=== PATIENT | female | born 1940 | race Caucasian/White ===

== ENCOUNTER 2016-06-15 09:35 | Emergency (ER) | payer OTHER, MEDICARE ==
[2016-06-15 10:03] LABS: COLOR YELLOW; LEUKOCYTE ESTERASE,URINE 3+ (NEGATIVE); NITRITE,URINE NEGATIVE (NEGATIVE)
[2016-06-15 10:12] LABS: RBC,URINE 50-182 /hpf (0-3); WBC,URINE 50-182 /hpf (0-3)
--- NOTE | 2016-06-15 10:24 | EDPHY ---
HPI/HX/ROS/PE/MDM Narrative: CHIEF COMPLAINT: Dysuria HISTORY OF PRESENT ILLNESS: This patient is a 75 year old woman presenting with acute dysuria, urinary frequency, and urinary urgency, onset 4-5 days ago, acutely worsening early this morning. Symptoms are moderate in severity. She denies hematuria, flank pain, fever, nausea, or vomiting. Symptoms are similar to previous urinary tract infections, last two years ago. REVIEW OF SYSTEMS: Aside from elements discussed in the HPI, a comprehensive 10-point review of systems was reviewed and is negative. PAST MEDICAL HISTORY: Denies. Negative testing for Celiac. SOCIAL HISTORY: Non-smoker. PCP is Dr. Alicia Pearson. She is transitioning to a gluten free diet. VITAL SIGNS: Reviewed by me GENERAL: Well-developed, well-nourished, resting comfortably in no respiratory distress. HEENT: Atraumatic. Eyes: No icterus, no injection. Mouth: moist mucous membranes. No erythema or lesions. Neck: supple with no adenopathy. LUNGS: Clear to auscultation bilaterally, no wheezes, rhonchi or rales. CARDIAC: Regular rate and rhythm, no rubs, murmurs or gallops. ABDOMEN: Soft, nontender, nondistended, bowel sounds normal. BACK: No CVA tenderness. EXTREMITIES: No trauma. No edema. Range of motion is normal throughout. NEURO: Alert and oriented, grossly nonfocal. SKIN: Warm and dry, no rash. PSYCHIATRIC: Normal mentation, no agitation. Portions of this note were transcribed by a medical center representative. I personally performed a history, physical exam, medical decision making, and confirmed accuracy of information the transcribed note. ED Course: Urinalysis shows WBCs, RBCs, and leukocyte esterase; consistent with urinary tract infection. The patient has no systemic symptoms. She is tolerating POs. Will treat with oral antibiotics and Pyridium. Patient believes she did not tolerate Keflex in the past. Previous urine cultures reviewed, sensitive to Cipro. Will prescribe Cipro for antibiotic. Note: a local pharmacy called and asked us to change prescription to Keflex. Their records indicate that the patient was unable to tolerate CIPRO previously , but had done well wiht KEFLEX This change was made. MDM: diff dx considered included vaginitis, uti, pyelonephritis, kidney stone, abdominal pain, bladder prolapse. - Data Points Medications Given: Discontinued Medications Ciprofloxacin (Cipro) 500 mg PO EDNOW ONE PRN Reason: Protocol Stop: 06/15/16 10:29 Last Admin: 06/15/16 10:43 Dose: 500 mg Phenazopyridine HCl (Pyridium) 200 mg PO EDNOW ONE Stop: 06/15/16 10:29 Last Admin: 06/15/16 10:43 Dose: 200 mg Microbiology Results: MICROBIOLOGY 06/15/16 10:08 Urine,Clean Catch Urine Culture - Final Proteus Mirabilis Gram Neg Rods 2 Or More Types General Time Seen by Provider: 06/15/16 10:09 Initial Vital Signs: Initial Vital Signs Temperature (C) 36.7 C 06/15/16 09:35 Heart Rate 78 06/15/16 09:35 Respiratory Rate 16 06/15/16 09:35 Blood Pressure 117/72 06/15/16 09:35 O2 Sat (%) 97 06/15/16 09:35 O2 Delivery Mode Room Air Allergies/Adverse Reactions: oxycodone HCl [From OxyContin] Allergy (Unknown, Verified 09/05/14 20:14) ITCH morphine Allergy (Verified 09/05/14 20:14) Itching shellfish derived Allergy (Verified 09/05/14 20:14) zolpidem tartrate [From Ambien] Allergy (Verified 09/05/14 20:14) Other-Enter Comments Home Medications: Medication Instructions Recorded Levothyroxine Sodium [Tirosint] 100 mcg PO DAILY 03/18/14 Ciprofloxacin [Cipro] 500 mg PO BID #14 tab 06/15/16 Departure - Departure Disposition: Home, Routine, Self-Care Clinical Impression: Urinary tract infection Qualifiers: Urinary tract infection type: acute cystitis Hematuria presence: with hematuria Qualified Code(s): N30.01 - Acute cystitis with hematuria Condition: Good Instructions: Urinary Tract Infection in Women (ED) Additional Instructions: Take the Pyridium for relief of pain with urination. Take the Cipro, as prescribed, for antibiotic. Return to the Emergency Department for fever, worsening pain, flank pain or failure to improve within 72 hours. It is possible that the bacteria causing your infection is resistant to the antibiotic we've placed you on. We have sent a urine for culture, if this comes back with a resistant bacteria, we will call you at the number you provided to us. Referrals: Heidi Pearson PA [Primary Care Provider] - As per Instructions Prescriptions: Ciprofloxacin [Cipro] 500 mg PO BID #14 tab Report Scribed for: Sherlyn Mejia Report Scribed by: Heidi Elena Date of Report: 06/15/16 Time of Report: 10:23
[2016-06-15] MEDS ORDERED: PHENAZOPYRIDINE HCL 200 MG TAB PO ONE (10:28)
[2016-06-15] MEDS ORDERED: CIPROFLOXACIN 500 MG TAB PO ONE (10:28)
[2016-06-15 10:45] VITALS: BP 116/72; PULSE 75; RESP 17; TEMP 98.8; O2SAT 98
== END 2016-06-15 10:44 | disposition home or self-care (01) ==
DX: N30.01 Acute cystitis with hematuria (principal); B96.89 Other specified bacterial agents as the cause of diseases classified elsewhere

== ENCOUNTER → 2017-02-25 | Outpatient (CLI) | payer OTHER, MEDICARE | LOC: FIMAGING 09:26 | PROVIDERS: ATTEND Physician Assistant | DX: Z12.31 Encounter for screening mammogram for malignant neoplasm of breast (principal) ==

== ENCOUNTER → 2017-02-28 | Outpatient (CLI) | payer OTHER, MEDICARE | LOC: FIMAGING 09:42 | PROVIDERS: ATTEND Physician Assistant | DX: R92.8 Other abnormal and inconclusive findings on diagnostic imaging of breast (principal) ==

== ENCOUNTER 2018-01-26 14:15 | Inpatient (IN) | payer OTHER, MEDICARE ==
--- NOTE | 2018-03-09 06:22 | PDIAF ---
- Diagnosis Diagnosis: right knee djd Code Status: Full Code - Medication Management Discharge Medications: electronically signed and located in the Home Medication List. - Orders Services needed: Home Care, Physical Therapy Home Care Face to Face: I certify that this patient was under my care and that I had the required [id number] encounter meeting the encounter requirements on the discharge day. My findings support the fact that the patient is homebound as defined in Home Care Face to Face Continued: CMS Chapter 7 Medicare Benefits Manual 30.1.1 , The condition of the patient is such that there exists a normal inability to leave home and consequently, leaving home would require a considerable and taxing effort. Isolation Type: None Diet Recommendation: no restrictions on diet Diet Texture: Regular Texture Diet Additional Instructions: TOTAL JOINT ARTHROPLASTY DISCHARGE INSTRUCTIONS 1. Your surgeon follows the [facility] protocol for reducing your risk of DVT (blood clots) following surgery. Medication will be ordered to prevent blood clots. A sudden increase in calf pain and/or swelling could indicate a blood clot in your leg. If this occurs, please call your surgeon or his/her volunteer services assistant. An ultrasound of the leg may be necessary to diagnose a blood clot. If you have conditions that make you a higher risk for blood clots, your surgeon may use more aggressive ways to prevent them. Notify your surgeon if you think you are a high risk for blood clots. 2. Wear your white surgical stockings (RONNY hose) for 2 weeks. This decreases your swelling and may help prevent blood clots. It is ok to remove RONNY hose at night time to give your legs a break. 3. Swelling and bruising in the surgical leg is common. If you feel that it is excessive, please notify your surgeon. 4. Elevate your surgical leg with the ankle above the hip several times every day. Please keep the leg straight when you elevate by putting pillows under your foot. Do not put pillows under your knee. This will make being able to fully straighten more difficult. This is uncomfortable, but try to do it as much as possible. 5. For total knee replacements use compressive wrap on your knee for 3-5 days after surgery, then you can discontinue it. 6. Use a walker or crutches for 1-2 weeks. Progress your weight-bearing as tolerated. You may start to use a cane when you feel stable and safe. 7. You will receive physical therapy instructions in the hospital. Continue those exercises at home. There are additional exercises in the total joint booklet you were given before surgery. Outpatient physical therapy will begin 7- 10 days after surgery. Please schedule this in advance. 8. Use ice on your knee at least 3-5 times every day for 30 minutes. This helps reduce pain and swelling. Also use it at night before falling asleep. 9. Leave your surgical dressing in place for 2 weeks. Your dressing is water resistant, but not waterproof. Cover it with Saran Wrap or Nacrc-m-Ryfd before showering. You may shower as soon as you feel safe entering a shower. If you notice bleeding from your incision 2 or 3 days after surgery, please notify your surgeon. 10. Due to narcotics, decreased activity and altered diet, most patients experience constipation after surgery. Use nwkm-oly-oqkjdis stool softeners while you are on narcotics. 11. You may drive a car when you are comfortable bearing weight, have good muscular control of your leg and are off narcotics. This usually occurs 2-4 weeks after surgery, depending on which leg was operated on. 12. If there are questions not addressed here, please refer the [facility] book given for more information. If you still have questions, please contact your surgeon s office. 13. If you have a life-threatening emergency, please call 911 and go to the emergency room immediately. For non-life threatening emergencies, please call your physicians office for advice before going to the emergency room. - Follow Up Care Current Providers and Referrals: Heidi Pearson PA [Primary Care Provider] - Hans Quiñones MD [Medical Doctor] -
--- NOTE | 2018-03-09 06:22 | PDHPUP ---
History & Physical Update H&P update statement: This history and physical update is based on an assessment of the patient which was completed after admission or registration (within 24 hours), but prior to the surgery/procedure. H&P update: no change in patient's condition since H&P completed
[2018-03-09] MEDS ORDERED: ACETAMINOPHEN 325 MG TAB PO ONE (09:21)
[2018-03-09] MEDS ORDERED: LR 1,000 ML IV ONE (09:21)
[2018-03-09] MEDS ORDERED: ceFAZolin 2 GM/DEXTROSE 100 ML IV ONE (09:21)
[2018-03-09] MEDS ORDERED: FAMOTIDINE 20 MG TAB PO ONE (09:21)
[2018-03-09] MEDS ORDERED: THROMBIN (BOVINE) 5,000 UNIT VIAL TP ONE (10:03)
[2018-03-09] MEDS ORDERED: CALCIUM CHLORIDE 1 GM/10 ML INJ ONE (10:03)
[2018-03-09] MEDS ORDERED: ceFAZolin 1 GM/5 ML SYR ONE (10:03)
[2018-03-09] MEDS ORDERED: ceFAZolin 1 GM VIAL ONE (10:04)
[2018-03-09] MEDS ORDERED: MIDAZOLAM 2 MG/2 ML VIAL IVP ONE (10:30)
--- NOTE | 2018-03-09 10:31 | PDANEPAE ---
ANE Past Medical History - Cardiovascular History Hx Hypertension: No Hx Arrhythmias: No Hx Coronary Artery / Peripheral Vascular Disease: No Hx CHF / Valvular Disease: No Hx Palpitations: No - Pulmonary History Hx COPD: No Hx Asthma/Reactive Airway Disease: No Hx Recent Upper Respiratory Infection: No Hx Oxygen in Use at Home: No Hx Sleep Apnea: No Sleep Apnea Screening Result - Last Documented: Negative - Neurologic History Hx Cerebrovascular Accident: No Hx Seizures: No Hx Dementia: No - Endocrine History Hx Diabetes: No Endocrine History Comment: thyroidectomy- hypothyroidism - Renal History Hx Renal Disorders: No - Liver History Hx Hepatic Disorders: No Hepatic History Comment: PARTIAL PANCREATIC INSUFFICIENCY - Neurological & Psychiatric Hx Hx Neurological and Psychiatric Disorders: Yes Neurological / Psychiatric History Comment: occassional anxiety and depression she relates it to her hypothyroid and paxil when needed on currently - Cancer History Hx Cancer: No - Congenital Disorder History Hx Congenital Disorders: No - GI History Hx Gastrointestinal Disorders: Yes Gastrointestinal History Comment: occassional reflux a few times a week just uses otc meds - Other Health History Other Health History: none - Chronic Pain History Chronic Pain: Yes (right shoulder pain) - Surgical History Prior Surgeries: thyroidectomy- chemically ablated not surgical. appy. left shoulder replacement . left tka 08/2011. fractured right wrist surgery 09/2010 ANE Review of Systems Review of Systems: - Exercise capacity METS (RN): 6 METS ANE Patient History - Allergies Allergies/Adverse Reactions: oxycodone HCl [From OxyContin] Allergy (Unknown, Verified 09/05/14 20:14) ITCH morphine Allergy (Verified 09/05/14 20:14) Itching shellfish derived Allergy (Verified 02/13/18 10:48) SEVERE RASH zolpidem tartrate [From Ambien] Allergy (Verified 02/13/18 10:48) NIGHTMARES - Home Medications Home Medications: Calcium Carbonate [Oyster Shell Calcium 500 mg (*)] 500 mg PO DAILY 02/11/18 [ Last Taken 1 Week Ago ~03/02/18] Cholecalciferol Vit D3 [Vitamin D3 (*)] 1,000 units PO DAILY 02/11/18 [Last Taken 1 Week Ago ~03/02/18] Estradiol [Estrace Vaginal (*)] 1 mg VG SUTH 02/11/18 [Last Taken 1 Day Ago ~] Herbals/Supplements -Info Only 1 ea PO DAILY 02/11/18 [Last Taken 1 Week Ago ~] Ibuprofen [Motrin (*)] 200 mg PO HS 02/11/18 [Last Taken 1 Week Ago ~03/02/18] Lipase 24,000/Amylase/Protease [Creon 24 (*)] 1 - 3 cap PO AD 02/11/18 [Last Taken 1 Day Ago ~03/08/18] Lipase 24,000/Amylase/Protease [Creon 24 (*)] 1 - 3 cap PO TIDMEAL 02/11/18 [ Last Taken 1 Day Ago ~03/08/18] Multivitamins [Multivitamin (*)] 1 each PO DAILY 02/11/18 [Last Taken 1 Week Ago ~03/02/18] Omeprazole 40 mg PO DAILY 02/11/18 [Last Taken 03/09/18 06:30] Vitamin B Complex [Vitamin B Complex (OTC)] 1 each PO DAILY 02/11/18 [Last Taken 1 Week Ago ~03/02/18] Gabapentin PRN 02/13/18 [Last Taken 1 Day Ago ~03/08/18] Xanax 0.25 MG (*) PRN 02/13/18 [Last Taken 1 Day Ago ~03/08/18] Levothyroxine Sodium [Tirosint] 112 mcg PO DAILY 03/09/18 [Last Taken 03/09/18 06:00] - NPO status NPO Since - Liquids (Date): 03/09/18 NPO Since - Liquids (Time): 07:30 NPO Since - Solids (Date): 03/08/18 NPO Since - Solids (Time): 22:00 - Smoking Hx Smoking Status: Former smoker - Family Anes Hx Family Hx Anesthesia Complications: none ANE Labs/Vital Signs - Vital Signs Blood Pressure: 91/57 Heart Rate: 68 Respiratory Rate: 16 O2 Sat (%): 98 Height: 149.86 cm Weight: 45.359 kg ANE Physical Exam - Airway Neck exam: FROM Mallampati Score: Class 1 Mouth exam: normal dental/mouth exam - Pulmonary Pulmonary: no respiratory distress - Cardiovascular Cardiovascular: regular rate and rhythym - ASA Status ASA Status: II ANE Anesthesia Plan Anesthesia Plan: spinal Regional Anesthesia: adductor canal FNB
[2018-03-09] MEDS ORDERED: PROPOFOL 200 MG/20 ML VIAL ONE (11:05)
[2018-03-09] MEDS ORDERED: ROPIVACAINE 0.2% 80 MG, EPINEPHrine 0.2 MG, KETOROLAC TROMETHAMINE 30 MG in SYRINGE 0 ML IU ONE (11:11)
[2018-03-09] MEDS ORDERED: TRANEXAMIC ACID 1,000 MG in NS 100 ML IV ONE (11:11)
[2018-03-09] MEDS ORDERED: POLYETHYLENE GLYCOL 3350 17 GM PKT PO PRN (11:59)
[2018-03-09] MEDS ORDERED: MAGNESIUM HYDROXIDE 30 ML UDCUP PO PRN (11:59)
[2018-03-09] MEDS ORDERED: TEMAZEPAM 15 MG CAP PO PRN (11:59)
[2018-03-09] MEDS ORDERED: PROMETHAZINE HCL 25 MG SUPPR PR PRN (11:59)
[2018-03-09] MEDS ORDERED: DIPHENOXYLATE/ATROPINE LOMOTIL 1 TAB PO PRN (11:59)
[2018-03-09] MEDS ORDERED: diphenhydrAMINE 25 MG CAP PO PRN (11:59)
[2018-03-09] MEDS ORDERED: ONDANSETRON 4 MG/2 ML VIAL IVP PRN ×2 (11:59→12:24)
[2018-03-09] MEDS ORDERED: BISACODYL 10 MG SUPP PR PRN (11:59)
[2018-03-09] MEDS ORDERED: METOCLOPRAMIDE 10 MG/2 ML VIAL IVP PRN (11:59)
[2018-03-09] MEDS ORDERED: PROMETHAZINE HCL 25 MG/ML INJ IVP PRN (11:59)
[2018-03-09] MEDS ORDERED: ONDANSETRON DISINTEGRATING 4 MG TAB PO PRN (11:59)
[2018-03-09] MEDS ORDERED: LACTULOSE 20 GM/30 ML UDCUP PO PRN (11:59)
[2018-03-09] MEDS ORDERED: traMADol 50 MG TAB PO PRN (11:59)
[2018-03-09] MEDS ORDERED: LR 1,000 ML IV SCH (12:00)
[2018-03-09] MEDS ORDERED: HYDROCODONE/APAP 5/325 TAB PO PRN (12:00)
--- NOTE | 2018-03-09 12:03 | POSTOPPROG ---
Post Op Note Date of Operation: 03/09/18 Surgeon: Hans Quiñones Nutritional Yeast Supervisor: albertina Anesthesiologist: charlotte Anesthesia: Spinal Pre-op Diagnosis: right knee djd Post-op Diagnosis: same Indication: same Procedure: right tka Inf/Abcess present in the surg proc area at time of surgery?: No Depth: Deep Incisional (Fascial) EBL: 50-100
[2018-03-09] MEDS ORDERED: NALOXONE HCL 0.4 MG/ML INJ IVP PRN (12:24)
[2018-03-09] MEDS ORDERED: LR 500 ML IV PRN (12:24)
--- NOTE | 2018-03-09 12:26 | POSTANESTH ---
Post Anesthetic Evaluation Cardiovascular Status: Normal, Stable Respiratory Status: Normal, Stable Level of Consciousness/Mental Status: Can Participate in Eval Pain Control: Adequate, Prn Tx Ordered Nausea/Vomiting Control: Adequate, Prn Tx Ordered Complications Possibly Related to Anesthesia: None Noted
[2018-03-09] MEDS: TRANEXAMIC ACID 650 MG TAB PO SCH ×2 (13:53→22:03)
[2018-03-09] MEDS: ACETAMINOPHEN 325 MG TAB PO SCH ×2 (13:54→18:13)
[2018-03-09] MEDS: ceFAZolin 2 GM/DEXTROSE 100 ML IV SCH (18:15)
[2018-03-09] MEDS ORDERED: IBUPROFEN 200 MG TAB PO SCH (21:00)
[2018-03-09] MEDS: CYCLOBENZAPRINE 10 MG TAB PO PRN (22:02)
[2018-03-09] MEDS: SENNOSIDES/DOCUSATE SODIUM TAB PO SCH ×2 (22:03→23:13)
[2018-03-09] MEDS: FAMOTIDINE 20 MG TAB PO SCH (22:03)
[2018-03-10] MEDS: ACETAMINOPHEN 325 MG TAB PO SCH ×3 (01:34→10:05)
[2018-03-10] MEDS: ASPIRIN 325 MG TAB PO SCH ×2 (01:34→10:05)
[2018-03-10] MEDS: ceFAZolin 2 GM/DEXTROSE 100 ML IV SCH (02:16)
[2018-03-10] MEDS: TRANEXAMIC ACID 650 MG TAB PO SCH (06:03)
--- NOTE | 2018-03-10 07:04 | SOAPPROG ---
SOAP Progress Note Assessment/Plan: Assessment: s/p right tka Plan:stable d/c home pain control dvt precautions f/u at two weeks 03/10/18 07:03 Subjective: mild pain no cp or sob bertha po Objective: Vital Signs Temp Pulse Resp BP Pulse Ox 36.6 C 70 16 108/63 94 03/10/18 04:00 03/10/18 04:00 03/10/18 04:00 03/10/18 04:00 03/10/18 04:00 Laboratory Results 03/10/18 04:38 03/09/18 03/10/18 03/11/18 05:59 05:59 05:59 Intake Total 3365 Output Total 2900 700 Balance 465 -700 dressing intact intact pf,df,ehl toes warm and pink neg homans mari xrays anatomic alignement no fx or lucency ICD10 Worksheet Patient Problems: Problems Problem Status Onset H/O total shoulder replacement Acute Headache Acute Urinary tract infection Acute
--- NOTE | 2018-03-10 07:04 | PDIAF ---
- Diagnosis Diagnosis: right knee djd Code Status: Full Code - Medication Management Discharge Medications: electronically signed and located in the Home Medication List. - Orders Services needed: Home Care, Physical Therapy Home Care Face to Face: I certify that this patient was under my care and that I had the required [id number]-[id number] encounter meeting the encounter requirements on the discharge day. My findings support the fact that the patient is homebound as defined in Home Care Face to Face Continued: CMS Chapter 7 Medicare Benefits Manual 30.1.1 , The condition of the patient is such that there exists a normal inability to leave home and consequently, leaving home would require a considerable and taxing effort. Isolation Type: None Diet Recommendation: no restrictions on diet Diet Texture: Regular Texture Diet Additional Instructions: TOTAL JOINT ARTHROPLASTY DISCHARGE INSTRUCTIONS 1. Your surgeon follows the [facility] protocol for reducing your risk of DVT (blood clots) following surgery. Medication will be ordered to prevent blood clots. A sudden increase in calf pain and/or swelling could indicate a blood clot in your leg. If this occurs, please call your surgeon or his/her sales support assistant. An ultrasound of the leg may be necessary to diagnose a blood clot. If you have conditions that make you a higher risk for blood clots, your surgeon may use more aggressive ways to prevent them. Notify your surgeon if you think you are a high risk for blood clots. 2. Wear your white surgical stockings (RONNY hose) for 2 weeks. This decreases your swelling and may help prevent blood clots. It is ok to remove RONNY hose at night time to give your legs a break. 3. Swelling and bruising in the surgical leg is common. If you feel that it is excessive, please notify your surgeon. 4. Elevate your surgical leg with the ankle above the hip several times every day. Please keep the leg straight when you elevate by putting pillows under your foot. Do not put pillows under your knee. This will make being able to fully straighten more difficult. This is uncomfortable, but try to do it as much as possible. 5. For total knee replacements use compressive wrap on your knee for 3-5 days after surgery, then you can discontinue it. 6. Use a walker or crutches for 1-2 weeks. Progress your weight-bearing as tolerated. You may start to use a cane when you feel stable and safe. 7. You will receive physical therapy instructions in the hospital. Continue those exercises at home. There are additional exercises in the total joint booklet you were given before surgery. Outpatient physical therapy will begin 7- 10 days after surgery. Please schedule this in advance. 8. Use ice on your knee at least 3-5 times every day for 30 minutes. This helps reduce pain and swelling. Also use it at night before falling asleep. 9. Leave your surgical dressing in place for 2 weeks. Your dressing is water resistant, but not waterproof. Cover it with Saran Wrap or Xnoct-w-Ytqa before showering. You may shower as soon as you feel safe entering a shower. If you notice bleeding from your incision 2 or 3 days after surgery, please notify your surgeon. 10. Due to narcotics, decreased activity and altered diet, most patients experience constipation after surgery. Use pvec-rbw-rwsaufu stool softeners while you are on narcotics. 11. You may drive a car when you are comfortable bearing weight, have good muscular control of your leg and are off narcotics. This usually occurs 2-4 weeks after surgery, depending on which leg was operated on. 12. If there are questions not addressed here, please refer the [facility] book given for more information. If you still have questions, please contact your surgeon s office. 13. If you have a life-threatening emergency, please call 911 and go to the emergency room immediately. For non-life threatening emergencies, please call your physicians office for advice before going to the emergency room. - Follow Up Care Current Providers and Referrals: Heidi Pearson PA [Primary Care Provider] - Hans Quiñones MD [Medical Doctor] -
[2018-03-10 07:40] VITALS: BP 112/66
[2018-03-10] MEDS ORDERED: LEVOTHYROXINE SODIUM 112 MCG PO SCH (09:00)
[2018-03-10] MEDS: FAMOTIDINE 20 MG TAB PO SCH (10:05)
[2018-03-10] MEDS: SENNOSIDES/DOCUSATE SODIUM TAB PO SCH (10:07)
[2018-03-10] MEDS: CYCLOBENZAPRINE 10 MG TAB PO PRN (10:07)
--- NOTE | 2018-03-10 11:05 | GOP ---
DATE OF OPERATION: 03/09/2018 SURGEON: Hans Quiñones MD ENROLLMENT SPECIALIST: Lemuel Becerra, ENTRY PROCESSOR, PIPELINE WELDER, circulation assistant, was a medical necessity for the entirety of the case. PREOPERATIVE DIAGNOSIS: Right knee degenerative joint disease. POSTOPERATIVE DIAGNOSIS: Right knee degenerative joint disease. PROCEDURE PERFORMED: Right total knee arthroplasty, MAKOplasty. FINDINGS: SPECIMENS: To Pathology, the bony cuts. INDICATIONS: The patient is a 77-year-old woman with end-stage arthritis to her right knee. Clinica l and radiographic features are consistent with this. She has failed all attempts at conservative ma nagement. She wished to proceed with operative intervention. Appropriate consent was signed and jonas abel in patient's chart. DESCRIPTION OF PROCEDURE: The patient was identified in the preanesthesia area. The right knee amira rly demarcated as operative site with indelible marker. She was given 1 g of vancomycin IV on route to the operative suite. In the OR spinal anesthetic was placed. She was positioned in the supine po sition and the right lower extremity was sterilely prepped and draped in usual fashion. Appropriate time-out procedure was carried out. The limb was exsanguinated with an Esmarch bandage. Tourniquet inflated to 275 mmHg. Standard anterior midline incision was made. Thick subcutaneous flaps were elevated, followed by med ial parapatellar arthrotomy. Subperiosteal elevation was carried out to the mid coronal plane. This demonstrated tricompartmental arthritis. Decision was made to proceed. Two pins were then placed f rom medial to lateral across the distal femur. Femoral and tibial checkpoints were then placed. The tibial reference array was affixed to 2 percutaneous pins placed in the mid tibia. The marginal ost eophytes were withdrawn. All bony landmarks were entered into the computer in standard fashion. The knee was balanced with adjustment of the components using the MAKOplasty software and soft tissue re leases. Using the MAKOplasty robot, resections made for a size 3 femur, size 3 tibia. Trial reduction was ca rried out over a 3 x 9 mm polyethylene. This allowed full extension and flexion to 125 degrees with no instability to varus or valgus stress through the flexion-extension arc. The trial components wer e withdrawn. The tibial and femoral components were press-fit in a sequential fashion and a 3 x 9 mm polyethylene spacer was then placed confirmed to be fully seated. The patella was then everted, cut in a freehand cutting technique. Drill holes were made for a size 32 mm metal-backed part patella F X. This was then press fitted into position. The kneecap tracked centrally through the flexion-exte nsion arc without stability. The wound was copiously irrigated. The capsule injected with joint cocktail of ropivacaine, Toradol, and epinephrine and the medial parapatellar arthrotomy closed using #1 Ethibond suture. The knee in stilled with platelet-rich plasma. Subcutaneous tissue closed using 2-0 Monocryl and the skin was st apled. Sterile dressing was applied. The patient was awakened, extubated, taken to recovery room in good, stable condition. TOTAL TOURNIQUET TIME: 40 minutes. COMPLICATIONS: None. IMPLANTS: Freddy Triathlon posterior stabilized femoral component size 3, size 3 tibia, 3 x 9 mm po lyethylene space, a 32 mm asymmetric patella. DISPOSITION: To the recovery room, then the floor. She is weightbearing, range of motion as tolerat ed. /[id number]/MODL
--- NOTE | 2018-03-10 11:14 | ASMTLACE ---
MERYLE Length of stay for Answers: 2 days current admission Acuity / Level of Answers: Yes Care: Did the patient have an inpatient admission? Comorbidities - select Answers: Opioid dependence all that apply / Chronic pain Other Notes: Hypothyroid # of Emergency department Answers: 0 visits in the last 6 months Social determinants Answers: Mental health diagnosis (anxiety, depression, pers onality disorders, etc.) Score: 13 Date Signed: 03/10/2018 11:13 AM Electronically Signed By:YELITZA mSith
--- NOTE | 2018-03-10 11:15 | ASMTCMCOM ---
CM Note CM Note Notes: Pt medically stable for d/c with [facility] PT, orders to be obtained via [facility]. Pt address/phone verified. Date Signed: 03/10/2018 11:14 AM Electronically Signed By:YELITZA Smith
--- NOTE | 2018-03-10 13:06 | GDS ---
ADMISSION DIAGNOSIS: Right degenerative joint disease DISCHARGE DIAGNOSIS: Right degenerative joint disease PROCEDURE: Right total knee arthroplasty. HISTORY OF PRESENT ILLNESS: The patient is a 77-year-old woman with end stage of the righ t knee. she presents for elective total knee replacement. HOSPITAL COURSE: The patient was admitted total knee arthroplasty. She tolerated the pro cedure well. Overnight she was noted tolerating an oral diet. Pain is well controlled on oral medicines. She is voiding without difficulty. Dressing is clean, dry and intact. No calf swe lling or tenderness. DISCHARGE ACTIVITY: She is weightbearing as tolerated. Range of motion as tolerated. Keep the dres sing intact. If it becomes saturated, . Followup in 2 weeks. /[id number]/MODL
--- NOTE | 2018-03-10 14:43 | ASDISCHSUM ---
Discharge Information Plan Status:Home with Home Health Medically Cleared to Leave: Discharge Date:03/10/2018 01:15 PM CM D/C Disposition: ADT D/C Disposition:Home Health Service Projected Discharge Date:03/10/2018 11:00 AM Transportation at D/C: Discharge Delay Reason: Follow-Up Date:03/10/2018 11:00 AM Discharge Slot: Final Diagnosis: Placement Information Referral Type:*Home Health Care Services Referral ID:[id number] Provider Name:[facility] Address 1:[address] Address 2: City:[place] Selection Factors: State:[place] Patient Contact Information Contact Name:HERMELINDO Relationship: Address:[address] City:[place] Alternate Phone: State/Zip Code:[place] [address] Email: Financial Information Financial Class:Medicare Primary Plan Desc:MEDICARE INPATIENT Primary Plan Number:[id number] Secondary Plan Desc:[employer]/MDR SUPPLEMENT Secondary Plan Number:[id number] Assessment Information LACE LACE Length of stay for Answers: 2 days current admission Acuity / Level of Answers: Yes Care: Did the patient have an inpatient admission? Comorbidities - select Answers: Opioid dependence all that apply / Chronic pain Other Notes: Hypothyroid # of Emergency department Answers: 0 visits in the last 6 months Social determinants Answers: Mental health diagnosis (anxiety, depression, pers onality disorders, etc.) Score: 13 Date Signed: 03/10/2018 11:13 AM Electronically Signed By:YELITZA Smith [facility] CM Progress Note CM Note CM Note Notes: Pt medically stable for d/c with [facility] PT, orders to be obtained via [employer]. Pt address/phone verified. Date Signed: 03/10/2018 11:14 AM Electronically Signed By:YELITZA Smith Intervention Information
--- NOTE | 2018-03-11 00:10 | PDMN ---
Medical Necessity Medical necessity: Pt meets IP criteria as of 03/09/18 per MD and [facility] S-700 (TKA) ; est los > 2 mn s/p TKA d/t advanced age.
[2018-03-12] MEDS ORDERED: ESTRADIOL 42.5 GM CRTUBE VG SCH (12:01)
== END 2018-03-10 13:15 | disposition home health service (06) | DRG 470 ==
LOC: F3N 03-09 09:01
PROVIDERS: ADMIT Orthopaedic Surgery; ATTEND Orthopaedic Surgery
PROC: 0SRC0JA Replacement of Right Knee Joint with Synthetic Substitute, Uncemented, Open Approach (ICD-10-PCS; principal; 2018-03-09 11:00)
PROC: 8E0Y0CZ Robotic Assisted Procedure of Lower Extremity, Open Approach (ICD-10-PCS; principal; 2018-03-09 11:00)
DX: M17.11 Unilateral primary osteoarthritis, right knee (principal); E89.0 Postprocedural hypothyroidism; F41.8 Other specified anxiety disorders; K21.9 Gastro-esophageal reflux disease without esophagitis; Z96.612 Presence of left artificial shoulder joint; Z96.652 Presence of left artificial knee joint; Z87.891 Personal history of nicotine dependence
CPT/HCPCS: 97116-GP; 97161-GP; 97165-GO; J0171; J0690; J1885; J2250; J2704; J2795

== ENCOUNTER → 2018-02-02 | Outpatient (CLI) | payer OTHER, MEDICARE | LOC: FIMAGING 09:01 | PROVIDERS: ATTEND Orthopaedic Surgery | DX: Z01.818 Encounter for other preprocedural examination (principal); M17.11 Unilateral primary osteoarthritis, right knee ==

== ENCOUNTER → 2018-02-27 | Outpatient (CLI) | payer OTHER, MEDICARE | LOC: FIMAGING 09:52 | PROVIDERS: ATTEND Physician Assistant | DX: Z12.31 Encounter for screening mammogram for malignant neoplasm of breast (principal); Z80.3 Family history of malignant neoplasm of breast ==

== ENCOUNTER → 2018-04-27 | Outpatient (CLI) | payer OTHER, MEDICARE | LOC: BMCIMAGING 14:25 | PROVIDERS: ATTEND Orthopaedic Surgery | DX: Z96.651 Presence of right artificial knee joint (principal) ==

== ENCOUNTER → 2018-06-08 | Outpatient (CLI) | payer OTHER, MEDICARE | LOC: BMCIMAGING 14:00 | PROVIDERS: ATTEND Orthopaedic Surgery | DX: Z47.1 Aftercare following joint replacement surgery (principal); Z96.651 Presence of right artificial knee joint; M25.461 Effusion, right knee ==